=== PATIENT | male | born 1940 | race Caucasian/White ===

== ENCOUNTER → 2017-12-06 | Outpatient (CLI) | payer OTHER ==
[~2017-12-06] MED LIST: ACCUPRIL40 MG PO; ADVIL LIQUI-GE200 MG PO; ASPIR 8181 MG PO; ASPIRIN EC81 M1 PO; ATORVASTATIN CA40 MG PO; GLUCOSAMINE-CH1 EA33 PO; HYDROCODON-ACE1 EAC5; LEXAPRO 10 MG T10 M1 PO; LIPITOR40 MG PO; LIPITOR80 MG PO; MULTI-VITAMIN1 EAC5 PO; MULTIVIT &0.5 MG/1 M PO; NORVASC 5 MG TAB5 MG PO; PERCOCET PO; RANITIDINE 150150 M1 PO; XARELTO10 M1; XARELTO10 MG PO
--- NOTE | ~2017-12-06 | EXE ---
[facility] Sarah [place] [address] STRESS ECHOCARDIOGRAM Name: GERARDO ACUÑA III Room #: RORY MARYSOL Alcantara#: [id number] Admission: 12/06/17 Attend Phys: Jordan Melendez, Discharge: Date of : 36 Date of Service: 12/06/17 1124 Report #: [id number] THIS REPORT FOR: //name// APPROVED REPORT Exam: Stress Echocardiogram Indication: CAD , Chest pain Patient Location: Out-Patient Stress Nurse: Jenny Waters RN Status: routine Ht: 5 ft 9 in HR: 66 bpm BP: 190/86 mmHg Rhythm: Irregular Medical History Medical History: CAD s/p CABG Medications: Listed on worksheet Allergies: No known drug allergies Cardiac Risk Factors: HTN, Hyperlipidemia, obesity Procedure The patient underwent an Exercise Stress Test using the Onofre Protocol. Blood pressure, heart rate, and EKG were monitored. An Echocardiogram was performed by electrician technician in four stages in quad fashion. At peak stress, four selected images were obtained and placed side by side with resting images for comparison. Stress Test Details Stress Test: Exercise stress testing was performed using a Onofre protocol. HR Resting HR: 66 bpm Max Heart Rate (APMHR): 141 bpm Max HR Achieved: 134 bpm Target HR (85% APMHR): 119 bpm % of APMHR: 95 Recovery HR: 83 bpm HR response to stress: Normal HR response to stress BP Resting BP: 190/86 mmHg Max BP: 210/90 mmHg Recovery BP: 160/80 mmHg ECG Resting ECG: Abimael Peck [facility] [address] [place] [address] STRESS ECHOCARDIOGRAM Name: ARIANNEGERARDO HANNAH ALANNAH Room #: REG Maricruz#: [id number] Admission: 12/06/17 Attend Phys: Jordan Melendez, Discharge: Date of : 36 Date of Service: 12/06/17 1124 Report #: [id number] Clinical Reason for Termination: Fatigue, dyspnea Exercise duration: 5 min 5 sec Highest Stage Achieved: Stage 2: 2.5 mph at 12% grade. Exercise capacity: 7.20 METs Pre-Stress Echo The resting Echocardiogram showed normal left ventricular contractility with an estimated Ejection Fraction of about 60-65%. Probable mild aortic stenosis, Trace AI. Severe MAC, mild MR, mild TR Post-Stress Echo The stress Echocardiogram showed normal left ventricular contractility with an estimated Ejection Fraction of about 65-70%. Conclusion Clinical Response: Non-ischemic Exercise Capacity: Average Stress ECG Response: Non-ischemic Stress Echo Images: Non-ischemic Other Information Study Quality: Adequate <ELECTRONICALLY SIGNED> By: Jordan Melendez MD, [facility] 12/06/17 1124 1124 1124 Jordan Melendez MD, FACC /INF
== END ==
LOC: CV 07:14
DX: I65.23 Occlusion and stenosis of bilateral carotid arteries (principal); I25.810 Atherosclerosis of coronary artery bypass graft(s) without angina pectoris

== ENCOUNTER → 2020-02-04 | Outpatient (CLI) | payer OTHER | LOC: SJCVCIMAG 08:49 | DX: I08.0 Rheumatic disorders of both mitral and aortic valves (principal); I44.0 Atrioventricular block, first degree; I11.9 Hypertensive heart disease without heart failure; I25.810 Atherosclerosis of coronary artery bypass graft(s) without angina pectoris; R53.83 Other fatigue; R60.9 Edema, unspecified; E78.5 Hyperlipidemia, unspecified; E78.00 Pure hypercholesterolemia, unspecified; I65.23 Occlusion and stenosis of bilateral carotid arteries; Z79.82 Long term (current) use of aspirin; Z79.899 Other long term (current) drug therapy; Z95.1 Presence of aortocoronary bypass graft; Z82.49 Family history of ischemic heart disease and other diseases of the circulatory system; Z87.891 Personal history of nicotine dependence ==

== ENCOUNTER → 2020-07-14 | Outpatient (CLI) | payer OTHER ==
[~2020-07-14] VITALS: Ht 172.7 cm; Wt 99.5 kg
[2020-07-14 07:55] VITALS: BP 1256/56
[2020-07-14 07:58] LABS: HEMATOCRIT 41.4 % (42.0-52.0); HEMOGLOBIN 13.8 gm/dL (14.0-18.0); MCHC 33.4 g/dL (28.0-37.0); MCV 95.7 fL (80.0-100.0); RBC 4.32 mil/uL (4.50-6.00); RDW 13.5 % (10.5-14.5); WBC 7.6 thou/uL (4.0-11.0)
[2020-07-14 08:08] LABS: CALCIUM 9.1 mg/dL (8.5-10.1); CREATININE 1.5 mg/dL (0.7-1.3); POTASSIUM 4.3 mmol/L (3.5-5.1)
--- NOTE | 2020-07-15 10:07 | CATHLAB ---
[facility] [place] [address] INVASIVE PROCEDURE REPORT Name: GERARDO ACUÑA III Room #: REG MINA AvilesRemaJaswinder.#: [id number] Admission: 07/14/20 Attend Phys: Jordan Melendez MD, Discharge: Date of : 36 Report #: [id number] THIS REPORT FOR: cc: Joshua Hi MD, Rene P. MD Mancuso, Gerald M. MD [facility] ~ APPROVED REPORT Study performed: 07/14/2020 10:02:05 Patient Details The patient is a 79 year-old male Event Personnel Jordan Melendez Tug Master, Amber Polanco RN RN, Ailyn Armstrong RN RN, Cintia Calixto RTR, FURNITURE ASSEMBLER Monitor, Woodrow Short RTR Monitor, Blossom Robles RTR Scrub Procedures Performed Art Access - R femoral artery* 24627 Initial Mod Sed Same Phys/QHP Gr5y 023353 60887 Mod Sed Same Phys/QHP Ea 489391 Coronaries Angiography and Bypass Grafts 215763 CORCABG Supravalvular Aortography Injection 3049326 ISVA Hemostasis w/ Mynx Renal Bilateral Peripheral Angiography [id number] CVRENALBIL Indication Chest pain Previous Procedures/Diagnoses Previous CABG Procedure Narrative The Right Groin^ was infiltrated with 1% Lidocaine subcutaneous anesthesia. A PINNACLE 6FR Sheath #[id number] sheath was inserted into the RFA^. Coronary angiography was performed using coronary diagnostic catheters. The right coronary system was accessed and visualized with a JR4 catheter. Closure device was deployed with a 6 Fr MYNXGRIP 6/7F #[id number]. Hemostasis was obtained with manual pressure following sheath removal without any complications. The patient tolerated the procedure well and there were no complications associated with the procedure. There was no hematoma. Intraoperative Conscious Sedation Sedation start time: 111 Case end Time: [facility] [address] [place] [address] INVASIVE PROCEDURE REPORT Name: GERARDO ACUÑA [facility] Room #: RORY Alcantara#: [id number] Admission: 07/14/20 Attend Phys: Jordan Melendez, Discharge: Date of : 36 Report #: [id number] Fentanyl 50 mcg Versed 1 mg Fluoro Time: 12.20 minutes Dose: DAP 57890.60 cGycm2 2065 mGy Contrast Type and Amount: Visipaque 165 ml Hemodynamics The aortic pressure is 181/80 mmHg with a mean of 58 mmHg. Conclusion #1. Supravalvular aortogram reveals trivial aortic insufficiency no significant aortic dilatation. Significant aortic stenosis exist unable to cross this valve. Will evaluate noninvasively. #2 [place] left system essentially occluded heavily calcified #3 [place] right coronary artery occluded #4 SVG to PDA is intact with retrograde filling of the posterior lateral system mildly diseased #5 SVG to the OM is retrograde filling the circumflex system mildly diseased no high-grade occlusive disease #6 SVG to small diagonal is intact diffusely diseased #7 GELLER to LAD is intact is tortuous system the LAD is moderately diseased in the distal half is a type I LAD. Minimal area of distribution before occlusion. Not a target for intervention. #8 selective injection of bilateral renal arteries have ostial disease of 20 to 30%. Not flow-limiting Recommendations and plan: Continue aggressive risk factor modification. No indication for coronary intervention. Will evaluate aortic stenosis noninvasively. At least moderate aortic stenosis is noted <ELECTRONICALLY SIGNED> By: Jordan Melendez MD, FACC 07/15/20 1007 1007 1007 Jordan Melendez MD, FACC /INF
== END | disposition home or self-care (01) ==
LOC: CATH 07:07
PROVIDERS: ATTEND Internal Medicine Cardiovascular Disease
DX: R07.9 Chest pain, unspecified (principal); I25.810 Atherosclerosis of coronary artery bypass graft(s) without angina pectoris; I35.2 Nonrheumatic aortic (valve) stenosis with insufficiency; I70.1 Atherosclerosis of renal artery; I10 Essential (primary) hypertension; E78.5 Hyperlipidemia, unspecified; E78.00 Pure hypercholesterolemia, unspecified; G47.30 Sleep apnea, unspecified; K21.9 Gastro-esophageal reflux disease without esophagitis; F17.210 Nicotine dependence, cigarettes, uncomplicated; E66.09 Other obesity due to excess calories; Z95.1 Presence of aortocoronary bypass graft; Z98.890 Other specified postprocedural states; Z79.899 Other long term (current) drug therapy; Z85.46 Personal history of malignant neoplasm of prostate; Z82.49 Family history of ischemic heart disease and other diseases of the circulatory system

== ENCOUNTER → 2020-11-11 | Outpatient (CLI) | payer OTHER | LOC: SJCVCIMAG 09:45 | PROVIDERS: ATTEND Internal Medicine Cardiovascular Disease | DX: R94.31 Abnormal electrocardiogram [ECG] [EKG] (principal); I08.8 Other rheumatic multiple valve diseases; R06.00 Dyspnea, unspecified; I11.9 Hypertensive heart disease without heart failure; I65.23 Occlusion and stenosis of bilateral carotid arteries; I45.10 Unspecified right bundle-branch block; R07.9 Chest pain, unspecified; E78.00 Pure hypercholesterolemia, unspecified; I25.810 Atherosclerosis of coronary artery bypass graft(s) without angina pectoris; G47.33 Obstructive sleep apnea (adult) (pediatric); Z85.46 Personal history of malignant neoplasm of prostate; Z95.1 Presence of aortocoronary bypass graft; Z86.16 Personal history of COVID-19; Z79.82 Long term (current) use of aspirin; Z79.899 Other long term (current) drug therapy; Z87.891 Personal history of nicotine dependence; Z72.89 Other problems related to lifestyle ==

== ENCOUNTER → 2021-02-09 | Outpatient (CLI) | payer OTHER | LOC: SJCVCIMAG 09:44 | PROVIDERS: ATTEND Internal Medicine Cardiovascular Disease | DX: I49.3 Ventricular premature depolarization (principal); I45.10 Unspecified right bundle-branch block; I44.0 Atrioventricular block, first degree; I25.810 Atherosclerosis of coronary artery bypass graft(s) without angina pectoris; I65.23 Occlusion and stenosis of bilateral carotid arteries; E78.00 Pure hypercholesterolemia, unspecified; I10 Essential (primary) hypertension; G47.33 Obstructive sleep apnea (adult) (pediatric); J44.9 Chronic obstructive pulmonary disease, unspecified; Z86.16 Personal history of COVID-19; Z87.891 Personal history of nicotine dependence; Z79.82 Long term (current) use of aspirin; Z79.899 Other long term (current) drug therapy; E78.5 Hyperlipidemia, unspecified; I25.10 Atherosclerotic heart disease of native coronary artery without angina pectoris ==